=== PATIENT | male | born 1985 | race Caucasian/White ===

== ENCOUNTER 2020-04-17 13:02 | Emergency (ER) | payer OTHER ==
[~2020-04-17] VITALS: Ht 185.4 cm; Wt 79.4 kg
[2020-04-17] MEDS ORDERED: KETO10TA2 PO (15:54)
== END 2020-04-17 16:52 | disposition home or self-care (01) ==
LOC: ER 13:02
DX: S92.001A Unspecified fracture of right calcaneus, initial encounter for closed fracture (principal); S90.32XA Contusion of left foot, initial encounter; Y93.89 Activity, other specified; Y92.89 Other specified places as the place of occurrence of the external cause; Y99.8 Other external cause status